=== PATIENT | male | born 2000 | race Caucasian/White ===

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

== ENCOUNTER 2022-07-21 15:03 | Emergency (ER) | payer OTHER, SELFPAY ==
--- NOTE | ~2022-07-21 | XR_ITS ---
XR finger 2nd LT min 2V DATE: 07/21/2022 15:26 INDICATION: Smashed between 2 pieces of height TECHNIQUE: 4 views COMPARISON: None FINDINGS: There is a comminuted fracture of the middle phalanx extending from the base to the lateral aspect of the head of the middle phalanx, with intra-articular extension at the proximal interphalan geal joint. There is minimal diastasis of the fracture fragments. No other fracture or dislocation, periosteal reaction or bone destruction. IMPRESSION: Comminuted fracture of the middle phalanx, with minimal diastasis, with intraarticular ex tension at the proximal interphalangeal joint Reviewed, dictated and finalized at location B. DRIVER IMPRESSION: Comminuted fracture of the middle phalanx, with minimal diastasis, with intraarticular extension at the proximal interphalangeal joint
[2022-07-21 15:19] VITALS: BP 145/91; PULSE 99; RESP 16; TEMP 36.3; O2SAT 98
[2022-07-21 15:24] VITALS: BP 145/91; PULSE 99; RESP 16; TEMP 36.3; O2SAT 98
--- NOTE | 2022-07-21 15:43 | ED.GENADULT ---
HPI - General Adult General Chief complaint: Extremity Injury, Upper Stated complaint: index finger lt hand inury Source: patient Mode of arrival: ambulatory Limitations: no limitations History of Present Illness HPI narrative: Patient presents for evaluation of an injury to the index finger of the left hand that occurred just prior to arrival. He indicates he was attempting to toss a piece of metal when it came back, causing his left index finger to get caught between it and a davey. He states his current pain level is 5/10, without descriptive quality, worse with movement. He reports decreased ROM of all joints of the affected digit. No paresthesias. He is right-hand dominant. Last tetanus was in 2020. He is not diabetic. Related Data Home Medications Medication Instructions Recorded Confirmed No Home Medications 07/21/22 07/21/22 Allergies Allergy/AdvReac Type Severity Reaction Status Date / Time ADHESIVE TATOO BANDAGES Allergy Mild unknown Uncoded 07/21/22 15:22 Review of Systems Review of Systems: CONSTITUTIONAL: Denies fever, chills, or sweats. EYES: Denies visual changes, redness, or discharge. ENT: Denies rhinorrhea, congestion, sore throat, or otalgia. CARDIOVASCULAR: Denies chest pain, palpitations, or edema. RESPIRATORY: Denies cough or dyspnea. GASTROINTESTINAL: Denies abdominal pain, nausea, vomiting, or diarrhea. GENITOURINARY: Denies dysuria or hematuria. SKIN: Reports wounds to the left index finger MUSCULOSKELETAL: Reports pain and decreased range of motion of the left index finger NEUROLOGIC: Denies headache, numbness, dizziness, or weakness. PSYCHIATRIC: Denies anxiety or depression. 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 HEAD: Normocephalic, atraumatic. EYES: PERRLA and EOMI. ENT: Nares clear, no rhinorrhea or epistaxis. Mucous membranes moist. Oropharynx without tonsillar hypertrophy exudate or other lesions. Bilateral TMs pearly blandon nonbulging NECK: Supple. No adenopathy or masses. No carotid bruits or JVD CHEST: Clear to auscultation. No respiratory distress. No wheezes rales or rhonchi HEART: Regular rate and rhythm. No murmur heard. Normal peripheral pulses. ABDOMEN: Soft, nontender, nondistended, normal active bowel sounds. EXTREMITIES: Decreased range of motion of the PIP and the IP joints of the left index finger There is swelling present to the left index finger. SKIN: approximately 3 cm laceration to the medial aspect of the left index finger which extends slightly into the palmar aspect of that digit. there is an approximately 2.5 cm avulsion injury with surrounding macerated tissue to the dorsal aspect of the left index finger NEURO: No focal deficits. Alert and oriented x3. PSYCH: Normal mood and affect. Course Course Emergency Course: This is a 22-year-old male who presented for evaluation of an injury to the left index finger. He has a comminuted fracture of the middle phalanx. I think his wound closure would be best served by a hand surgeon so as to minimize risk of long-term complications. I contacted Dr. Melo and he agreed to see pt in office today. Pt was sent directly to office from this facility. He is UTD on tetanus and
== END 2022-07-21 16:05 | disposition home or self-care (01) ==
PROVIDERS: Emergency Provider Nurse Practitioner
DX: S62.621A Displaced fracture of middle phalanx of left index finger, initial encounter for closed fracture (principal); W23.0XXA Caught, crushed, jammed, or pinched between moving objects, initial encounter
CPT/HCPCS: 73140; 99213; G0463

== ENCOUNTER 2022-07-24 16:51 | Outpatient (CLI) | payer OTHER, SELFPAY ==
--- NOTE | ~2022-07-24 | XR_ITS ---
EXAMINATION: XR finger 2nd LT min 2V DATE: 07/24/2022 17:15 INDICATION: Displaced fracture of middle phalanx of left index finger. TECHNIQUE: 2 views of left hand second digit were obtained. COMPARISON: Left hand second digit radiographs 07/21/22 FINDINGS: There is a comminuted fracture of second middle phalanx with involvement of the proximal ar ticular surface. The main distal fracture fragment demonstrates near-anatomic alignment. Joint spaces are normal. IMPRESSION: 1. Comminuted fracture of second middle phalanx. Reviewed, dictated and finalized at location A. RINE MAKER
== END 2022-07-24 16:52 ==
PROVIDERS: PCP Plastic Surgery; Visit Provider Plastic Surgery
DX: S62.621B Displaced fracture of middle phalanx of left index finger, initial encounter for open fracture (principal); X58.XXXA Exposure to other specified factors, initial encounter
CPT/HCPCS: 73140

== ENCOUNTER 2022-08-04 07:42 | Outpatient (CLI) | payer OTHER, SELFPAY ==
--- NOTE | ~2022-08-04 | XR_ITS ---
EXAMINATION: XR finger 2nd LT min 2V DATE: 08/04/2022 08:13 INDICATION: Displaced fracture of the left second middle phalanx TECHNIQUE: Dorsal palmar, lateral and 2 oblique views of the second digit were obtained COMPARISON: 07/24/2022 FINDINGS: No significant interval change in a minimally displaced likely mildly comminuted intra-articular frac ture of the left second middle phalanx with approximately 1 mm fracture gap and <1 mm incongruity at the proximal articular surface. The fracture lines appear less sharp consistent with early resorptive changes of healing. No evident callus formation. Joint spaces appear normal. Persistent soft tissue swelling about the middle phalanx. IMPRESSION: 1. No interval change in minimal displacement of an intra-articular mildly comminuted fractures of th e left second middle phalanx with no productive changes of healing yet apparent. Reviewed, dictated and finalized at location A. ALLATION TECH IMPRESSION: 1. No interval change in minimal displacement of an intra-articular mildly comm inuted fractures of the left second middle phalanx with no productive changes o f healing yet apparent.
== END 2022-08-04 07:43 ==
LOC: MICIMG 07:45
PROVIDERS: PCP Plastic Surgery; Visit Provider Plastic Surgery
DX: S62.621B Displaced fracture of middle phalanx of left index finger, initial encounter for open fracture (principal); X58.XXXA Exposure to other specified factors, initial encounter
CPT/HCPCS: 73140

== ENCOUNTER 2022-08-12 16:08 | Outpatient (RCR) | payer OTHER, SELFPAY ==
--- NOTE | 2022-08-15 08:22 | BUOTOPEVAL ---
Assessment and note entered by Rylie Sams, OT Evaluation Information Assessment Status Evaluation Diagnosis Nondisplaced, open comminuted fx of L 2nd middle phalanx Onset 07/21/2022 Subjective Information The patient reports 7/10 pain when he moves it weird or when his finger is bumped. When at rest, the patient reports 0/10 pain. The patient reports that he visited the doctor on 08/11/22 and they removed stitches to his finger at dorsal and volar sides. Reported Pain Level Pain Score 0: Self Report Assessment OT Clinical Summary The patient is a 22 year old male who was referred to outpatient OT due to nondisplaced, open comminuted fx of L 2nd middle phalanx. The patient 's past medical history includes but is not limited to asthma which affects POC. The patient scored 15.9% on QuickDASH questionnaire demonstrating minimal functional deficits. The patient presents with edema, limited ROM, weakness and pain that affect the patient's ability to perform self care tasks and IADLs. The patient previously demonstrated no pain, edema, or weakness and WNL ROM of finger. 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 The patient requires skilled OT to address these deficits of index finger in order to perform ADLs and work tasks. Plan of Care Interventions Therapeutic Exercise,Manual Therapy,Neuro Re- education,Therapeutic Activities,Hot Pack/Cold Pack,Electrical Stimulation,Sensory Integrative Techn,Self-Care/Home Management,Check Out for Orthotic/Pr,Ultrasound OT Services Indicated Yes Treatment Frequency and 2x/week for 10 visits. Duration These treatments will address the objective and functional deficits as defined above. The patient will be advanced safely and appropriately in order for the patient to progress towards his/her prior level of function. Additional exercises will be introduced and as well as a comprehensive home exercise program upon discharge, if needed, ?to ensure carryover of functional gains achieved in the clinic. This treatment plan has been reviewed and agreement upon by the patient.
--- NOTE | 2022-09-02 16:56 | OTOPPROG ---
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 The patient reports no pain during gripping exercises and continues to demonstrate progress toward goals. The patient demonstrates good therapy potential to improve AROM and strength of L hand, to continue to recieve outpatient OT 1x/week to return to highest level of function. Plan of Care Interventions Therapeutic Exercise,Manual Therapy,Neuro Re- education,Therapeutic Activities,Hot Pack/Cold Pack,Self-Care/Home Management OT Services Indicated Yes Treatment Frequency and 1x/week for 10 visits. Duration These treatments will address the objective and functional deficits as defined above. The patient will be advanced safely and appropriately in order for the patient to progress towards his/her prior level of function. Additional exercises will be introduced and as well as a comprehensive home exercise program upon discharge, if needed, ?to ensure carryover of functional gains achieved in the clinic. This treatment plan has been reviewed and agreement upon by the patient.
--- NOTE | 2023-07-02 14:01 | PCOTNOTE ---
The patient is discharged with HEP; >30 days since last treatment.
== END 2022-09-11 23:59 | disposition home or self-care (01) ==
LOC: CHSOT 16:08
PROVIDERS: Visit Provider Plastic Surgery
DX: S62.655D Nondisplaced fracture of middle phalanx of left ring finger, subsequent encounter for fracture with routine healing (principal)
CPT/HCPCS: 97110; 97140; 97165; 97530; 97760